=== PATIENT | male | born 1985 | race Caucasian/White ===

== ENCOUNTER 2022-11-28 04:26 | Emergency (ER) | payer MEDICAID ==
[~2022-11-28] VITALS: Ht 167.6 cm; Wt 60.3 kg
--- NOTE | 2022-11-28 05:00 | NUR ---
[id number] & [employer] FOR 5150 HOLD DTS MULTIPLE SELF INFLICTED LACS TO LFA. UNKNOWN TDAP. PT A/O;3 ERITREAN SPEAKING. TOLERATING R/A WELL WITH NO RESP DISTRESS. PT CHANGED IN GOWN, BELONGINGS PLACED IN LOCKER, AND WANDED BY SECURITY . SAFETY MEASURES IN PLACE. SITTER WITHIN SIGHT.
--- NOTE | 2022-11-28 05:03 | NUR ---
DR. JIMENA MANNING AT PT'S BEDSIDE FOR EVAL AND WOUND CARE TO [facility]
--- NOTE | 2022-11-28 05:04 | NUR ---
CLOUD SUBJECT MATTER EXPERT AT PT'S BEDSIDE
--- NOTE | 2022-11-28 05:10 | NUR ---
NED NATH SWAB COLLECTED AND SENT TO LAB
--- NOTE | 2022-11-28 05:10 | NUR ---
Note brandione in EDM - 11/28/22 at 0520 by TAMMY [id number] & [employer] FOR 5150 HOLD DTS MULTIPLE SELF INFLICTED LACS TO LFA. UNKNOWN TDAP. PT A/O;3 MOHAWK SPEAKING. TOLERATING R/A WELL WITH NO RESP DISTRESS. PT CHANGED IN GOWN, BELONGINGS PLACED IN LOCKER, AND WANDED BY SECURITY . SAFETY MEASURES IN PLACE. SITTER WITHIN SIGHT.
--- NOTE | 2022-11-28 05:10 | NUR ---
URINE COLLECTED AND SENT TO LAB
[2022-11-28 05:15] LABS: BASOPHILS # (AUTO) 0.1 K/uL (0.0-0.2); BASOPHILS % (AUTO) 0.9 % (0.0-2.0); EOSINOPHILS % (AUTO) 2.7 % (0.0-6.0); HEMATOCRIT 48 % (39-51); HEMOGLOBIN 16.4 g/dL (13.5-17.5); LYMPHOCYTES # (AUTO) 3.6 K/uL (0.8-4.8); LYMPHOCYTES % (AUTO) 34.4 % (20.0-44.0); MEAN CORPUSCULAR HGB CONC 34 g/dl (31.0-36.0); MEAN CORPUSCULAR VOLUME 95 fL (80-96); MONOCYTES % (AUTO) 9.6 % (2.0-12.0); NEUTROPHILS # (AUTO) 5.5 K/uL (1.8-8.9); NEUTROPHILS % (AUTO) 52.4 % (43.0-81.0); PLATELET COUNT (AUTO) 273 K/uL (150-450); WHITE BLOOD COUNT (AUTO) 10.6 K/uL (4.3-11.0)
[2022-11-28] MEDS ORDERED: TDAP [DIPH/PERTUSSIS/TET] 0.5 ML VIAL IM ONE ×2 (05:30→06:06)
[2022-11-28 05:31] LABS: ALANINE AMINOTRANSFERASE 30 U/L (12-78); ALBUMIN 4.3 g/dL (3.4-5.0); ALCOHOL, BLOOD 263 mg/dL (0-0); ALKALINE PHOSPHATASE 123 U/L (46-116); ASPARTATE AMINOTRANSFERASE 28 U/L (15-37); BILIRUBIN,DIRECT 0.2 mg/dL (0.0-0.2); BILIRUBIN,TOTAL 0.4 mg/dL (0.2-1.0); CALCIUM, SERUM 8.6 mg/dL (8.5-10.1); CARBON DIOXIDE 28 mmol/L (21-32); CHLORIDE 109 mmol/L (98-107); CREATININE 0.9 mg/dL (0.6-1.3); GLUCOSE 120 mg/dL (74-106); POTASSIUM 4.3 mmol/L (3.5-5.1); SODIUM SERUM 145 mmol/L (136-145); TOTAL PROTEIN, SERUM 8.1 g/dL (6.4-8.2); UREA NITROGEN, BLOOD 10 mg/dL (7-18)
[2022-11-28 05:33] LABS: ACETAMINOPHEN < 10 ug/ml (10-30)
[2022-11-28 05:54] LABS: BILIRUBIN,URINE NEGATIVE (NEGATIVE); COLOR,URINE OTHER (YELLOW); LEUKOCYTE ESTERASE ,URINE NEGATIVE (NEGATIVE); NITRITE, URINE NEGATIVE (NEGATIVE); PROTEIN,URINE NEGATIVE (NEGATIVE); UGLUCOSE NEGATIVE (NEGATIVE); UROBILINOGEN,URINE 0.2 EU/dL (0.2)
[2022-11-28 06:41] LABS: BACTERIA,URINE Rare /HPF (None Seen); RBC,URINE 0-2 /HPF (0-2); SQUAMOUS EPITHELIAL CELL,UR Rare /HPF (None Seen); WBC,URINE 0-2 /HPF (0-3)
--- NOTE | 2022-11-28 08:19 | NUR ---
PT IN BED RESTING WOUND DRESSED AND CLEAN.
--- NOTE | 2022-11-28 10:55 | NUR ---
PT SEEN BY DR. BERMEO; PER , NEEDS SS TO SEE PT TO DETERMINE OUTSIDE/SOCIAL SUPPORT. CALLED JEFE FROM SS, WILL SEE PT.
[2022-11-28] MEDS ORDERED: LORAZEPAM 1 MG TABLET PO PRN (11:00)
--- NOTE | 2022-11-28 11:55 | NUR ---
PT SEEN BY PAMELLA MAYBERRY AT BEDSIDE
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
--- NOTE | 2022-11-28 12:09 | NUR ---
PT'S FRIEND COMING FOR [employer] G[employer]. DR. HOLM OK TO BREAK HOLD WITH FRIEND'S SUPERVISION PT PROVIDED WITH MENTAL HEALTH RESOURCES
--- NOTE | 2022-11-28 13:39 | NUR ---
AAO, appropriate to simple questions. GCS-15 NO obvious distress NO acute changes. Cleared By Psych for discharge and SW provided resources. AMBULATORY to BR gait even and steady ABLE to tolerate food and po fluid. For discharge - Patient discharged to home in stable condition. Written and verbal after care instructions given. Patient verbalizes understanding of instruction.
[2022-11-28 13:42] VITALS: BP 125/80
[2022-11-29] MEDS ORDERED: THIAMINE HCL 100 MG TABLET PO SCH (09:00)
== END 2022-11-28 13:43 | disposition home or self-care (01) ==
LOC: ER 04:36
DX: S61.512A Laceration without foreign body of left wrist, initial encounter (principal); Y28.9XXA Contact with unspecified sharp object, undetermined intent, initial encounter; Y92.039 Unspecified place in apartment as the place of occurrence of the external cause; Z20.822 Contact with and (suspected) exposure to COVID-19; F10.129 Alcohol abuse with intoxication, unspecified; Y90.8 Blood alcohol level of 240 mg/100 ml or more; Z59.2 Discord with neighbors, lodgers and landlord; F43.23 Adjustment disorder with mixed anxiety and depressed mood
CPT/HCPCS: 99285; 90471; 90715; 85025; 80048; 80076; 81001; 36415; 87426; 80143; 80320; 80307; 12001; C9803; G0480